=== PATIENT | female | born 1980 | race Caucasian/White ===

== ENCOUNTER 2018-01-11 10:25 | Day surgery (SDC) | payer MEDICAID ==
[~2018-01-11] VITALS: Ht 160 cm; Wt 81.4 kg
[~2018-01-11 10:25] MED LIST: OMEP20 PO
[2018-01-11] MEDS ORDERED: LIDOCAINE HCL/PF 2% 5 ML VIAL IM ONE (10:26)
[2018-01-11] MEDS ORDERED: PROPOFOL 1% 20 ML VIAL IVP ONE (10:26)
[2018-01-11] MEDS ORDERED: SODIUM CHLORIDE 0.9% 1,000 ML IV ONE ×2 (10:39→11:15)
[2018-01-11] MEDS ORDERED: FentaNYL CITRATE-PF 100 MCG/2 ML VIAL ONE (12:12)
[2018-01-11] MEDS ORDERED: MIDAZOLAM HCL 5 MG/ML VIAL ONE (12:12)
== END 2018-01-11 14:10 | disposition home or self-care (01) ==
LOC: SURGERY 10:25
PROVIDERS: ATTEND Internal Medicine Gastroenterology
DX: K29.70 Gastritis, unspecified, without bleeding (principal); K44.9 Diaphragmatic hernia without obstruction or gangrene; E86.0 Dehydration; Z72.89 Other problems related to lifestyle; Z87.891 Personal history of nicotine dependence; Z79.899 Other long term (current) drug therapy; Z98.890 Other specified postprocedural states
CPT/HCPCS: 43239; 84703; 88305; 88312; 88342; C1769; J2704; J3490; J7030; J2250; J3010